=== PATIENT | male | born 1975 | race Caucasian/White ===

== ENCOUNTER 2021-01-07 12:14 | Emergency (ER) | payer OTHER ==
[~2021-01-07 12:14] MED LIST: ALL DAY ALLERGY10 MG PO; ASPIRIN EC81 MG PO; ATARAX25 MG PO; ELAVIL10 MG PO; ELIQUIS5 MG PO; IBUPROFEN800 MG PO; LASIX40 MG PO; NEURONTIN300 MG PO; PREDNISONE 20MG20 MG PO; PRILOSEC20 MG PO; ULTRAM50 MG PO; VENTOLIN HFA IN18 GM INH; ZPAK PO
[2021-01-07 13:02] LABS: BASOPHIL 0.4 % (0-2); EOSINOPHIL 1.1 % (0-5); HCT 46.1 % (42.0-52.0); HGB 14.4 g/dl (13.2-18.0); LYMPHOCYTE 27.4 % (15-48); MCH 27.5 pg (25.0-31.0); MCHC 31.2 g/dL (32.0-36.0); MCV 88.1 fL (78.0-100.0); MONOCYTE 7.6 % (0-12); MPV 9.6 fL (6.0-9.5); NEUTROPHIL 63.3 % (41-80); NRBC 0; PLT 341 K/uL (150-400); RBC 5.23 M/uL (4.70-6.00); RDW 14.4 % (11.5-14.0); WBC 5.5 K/uL (4.0-10.5)
[2021-01-07 13:31] LABS: ALBUMIN 3.5 g/dL (3.4-5.0); BILIRUBIN - TOTAL 0.5 mg/dL (0.2-1.0); BUN/CREAT RATIO (CALC) 9.3 RATIO; CREATININE 0.86 mg/dL (0.67-1.17); GLOBULIN (CALCULATION) 3.7 g/dL; POTASSIUM 4.5 mmol/L (3.5-5.1); TOTAL PROTEIN 7.2 g/dL (6.4-8.2)
[2021-01-07 13:38] LABS: PRO-BNP 60 pg/mL (<125)
[2021-01-07] MEDS ORDERED: NITROQUIK SL0.4 MG SL (15:30)
== END 2021-01-07 16:05 | disposition home or self-care (01) ==
LOC: FER 12:14
PROVIDERS: Emergency Medicine
DX: R07.89 Other chest pain (principal)
CPT/HCPCS: 36415; 71045; 80053; 83880; 84484; 85025; 85379; 93005